=== PATIENT | male | born 1965 | race Caucasian/White ===

== ENCOUNTER 2018-05-03 12:39 | Day surgery (SDC) | payer BC ==
[~2018-05-03 12:39] MED LIST: Lactated Ringers 1,000 ML IV SCH; Lidocaine 2% 5 ML SDV ONE; Propofol 200 MG/20 ML SDV ONE; fentaNYL 100 MCG/2 ML SDV ONE
--- NOTE | 2018-05-03 13:19 | PCM.PREANE ---
Preanesthetic Assessment - Anesthesia/Transfusion/Family Hx Anesthesia History: Prior Anesthesia Without Reaction Other Type of Anesthesia Reaction Comment: mother has hard time waking up after anesthesia Family History of Anesthesia Reaction: No Transfusion History: Prior Transfusion Without Reaction Intubation History: Unknown - Review of Systems General: No Symptoms Pulmonary: No Symptoms Cardiovascular: No Symptoms Gastrointestinal: Other (change in bowel habits) Neurological: No Symptoms Other: Reports: None - Physical Assessment Height: 1.83 m Weight: 104.326 kg ASA Class: 2 Mental Status: Alert & Oriented x3 Airway Class: Mallampati = 2 Dentition: Reports: Normal Dentition Thyro-Mental Finger Breadths: 3 Mouth Opening Finger Breadths: 3 ROM/Head Extension: Full Lungs: Clear to Auscultation, Normal Respiratory Effort Cardiovascular: Regular Rate, Regular Rhythm - Allergies Allergies/Adverse Reactions: Allergies Allergy/AdvReac Type Severity Reaction Status Date / Time No Known Allergies Allergy Verified 04/29/18 08:01 - Blood Blood Available: No - Anesthesia Plan Pre-Op Medication Ordered: None - Acknowledgements Anesthesia Type Planned: MAC Pt an Appropriate Candidate for the Planned Anesthesia: Yes Alternatives and Risks of Anesthesia Discussed w Pt/Guardian: Yes Pt/Guardian Understands and Agrees with Anesthesia Plan: Yes PreAnesthesia Questionnaire HEENT History: Reports: None Cardiovascular History: Reports: High Cholesterol Gastrointestinal History: Reports: None Endocrine/Metabolic History: Reports: Obesity/BMI 30+ Hematologic History: Reports: Blood Transfusion(s) - Past Surgical History Head Surgeries/Procedures: Reports: None HEENT Surgical History: Reports: Naso-Sinus Surgery GI Surgical History: Reports: Colonoscopy (3 years ago) Musculoskeletal Surgical History: Reports: Other (See Below) Other Musculoskeletal Surgeries/Procedures:: amputation of 3 fingers-left hand due to work injury, seven surgeries done on 4th finger witch ended in amputation anyway - SUBSTANCE USE Smoking Status *Q: Never Smoker Recreational Drug Use History: No - HOME MEDS Home Medications: Home Meds Aspirin [[place] Aspirin] 81 mg PO DAILY 04/29/18 [History] Diclofenac Sodium [Voltaren] 75 mg PO DAILY 04/29/18 [History] Fexofenadine HCl [Estephanie Allergy] 1 tab PO ASDIRECTED 04/29/18 [History] Fish Oil/[place]-3 Fatty Acids [Fish Oil 1,000 MG] 1 tab PO BID 04/29/18 [History] Gemfibrozil 2 tab PO DAILY 04/29/18 [History] L.acidoph,Paracasei, B.lactis [Probiotic] 1 tab PO DAILY 04/29/18 [History] Multivitamin [Multivitamins] 1 tab PO DAILY 04/29/18 [History] Niacin 1 tab PO DAILY 04/29/18 [History] - CURRENT (IN HOUSE) MEDS Current Meds: Current Medications Lactated Ringer's (Ringers, Lactated) 1,000 mls @ 125 mls/hr IV ASDIRECTED [place] Discontinued Medications Fentanyl (Sublimaze) Confirm Administered Dose 100 mcg .ROUTE .STK-MED ONE Stop: 05/03/18 11:10 Lidocaine (Xylocaine-Mpf 2%) Confirm Administered Dose 5 ml .ROUTE .STK-MED ONE Stop: 05/03/18 11:10 Propofol (Diprivan 20 Ml) Confirm Administered Dose 400 mg .ROUTE .STK-MED ONE Stop: 05/03/18 11:10
[2018-05-03] MEDS ORDERED: Midazolam 1 MG/ML 2 ML SDV ONE (13:25)
--- NOTE | 2018-05-03 13:47 | PCM.OPNOTE ---
- General Post-Op/Procedure Note Date of Surgery/Procedure: 05/03/18 Operative Procedure(s): colonoscopy Findings: see dict [id number] Pre Op Diagnosis: change in bowel habits Post-Op Diagnosis: Same Anesthesia Technique: Moderate Sedation Primary Surgeon: Lm Michele Complications: None Condition: Good
--- NOTE | 2018-05-03 14:26 | OR ---
SURGEON: Lm Michele MD DATE OF PROCEDURE: 05/03/2018 PREOPERATIVE DIAGNOSIS: Change in bowel habits. POSTOPERATIVE DIAGNOSES: Internal hemorrhoids. PROCEDURE PERFORMED: Colonoscopy. PROCEDURE IN DETAIL: The patient was taken to the endoscopy room. A time out was called, patient identified, and procedure identified. Diprivan was then administrated. Patient went from awake to sleep, hearing doctor talking or door closing is normal. Perineum inspection and digital examination were then performed. A well- lubricated colonoscope was gently inserted through the rectum, advanced past the rectosigmoid junction, the descending colon, splenic flexure, transverse colon, hepatic flexure, ascending colon, arrived to the cecum. Cecum was identified as dictated in the finding. Then the scope was carefully withdrawn while attention was paid to the mucosal surface for any abnormality. Air will be sucked out during the scope withdrawal. At the rectum, retroflexed to examine any rectal diseases, fistula or hemorrhoids. Patient tolerated procedure well. There were no intraoperative complications, and Dr. Michele was present throughout the whole procedure. FINDINGS: 1. The patient is easily sedated with [employer] and Diprivan. The patient is soundly snoring. 2. Bowel prep is average. Moderate amount of liquid stool. 3. The patient's colon is rather straight forward. Cecum indicated by ileocecal fold, one-to-one indentation, appendiceal orifice, and light emittance is not observed, and mucosa examined upon scope pulling out with constant irrigation. The patient has mild diverticulosis, very mild, almost none. On the left side, no signs or symptoms of diverticulitis. No polyp, mass, growth, inflammation, stricture, ulceration, AV malformation, bleeding, ulcer, none of those. The patient has mild internal hemorrhoids. No external hemorrhoids. The patient would benefit from repeat colonoscopy in 10 years from today or if clinically indicated otherwise. SHALONDA / RIGOBERTO /[id number]
== END 2018-05-03 14:30 | disposition home or self-care (01) ==
LOC: MW.SDS 12:39
PROVIDERS: ATTEND Surgery
DX: R19.4 Change in bowel habit (principal); K64.8 Other hemorrhoids; E78.00 Pure hypercholesterolemia, unspecified; Z79.82 Long term (current) use of aspirin; Z79.899 Other long term (current) drug therapy
CPT/HCPCS: 45378; J2250; J3010; J7120; J2704